=== PATIENT | female | born 1965 | race American Indian/Alaskan Native ===

== ENCOUNTER 2016-10-09 20:17 | Emergency (ER) | payer OTHER ==
[2016-10-10] MEDS ORDERED: MOTRIN PO ONE (00:28)
--- NOTE | 2016-10-10 00:32 | Emergency Department Report ---
ED Headache HPI - General Chief Complaint: Headache Stated Complaint: HEADACHE/RT EYE/EAR PAIN/DIZZY Time Seen by Provider: 10/10/16 00:27 - History of Present Illness Timing/Duration: waxing and waning Quality: moderate Head Injury Location: frontal Recent Head Trauma: no recent headache/trauma Associated Symptoms: nasal congestion, nasal drainage Allergies/Adverse Reactions: Allergies No Known Allergies Allergy (Unverified 04/05/13 03:25) Home Medications: Ambulatory Orders Amlodipine Besylate/Benazepril [Lotrel 5-10 mg] 1 each PO QDAY 04/05/13 Bimatoprost [Lumigan 0.01%] 1 drop OP QPM 04/05/13 Sulfamethoxazole/Trimethoprim [Bactrim DS TAB] 1 each PO BID #14 tablet Triamcinolone Acetonide [Nasacort SPRAY] 10.8 ml NS QDAY #1 spray 10/10/16 hydrOXYzine HCL [Atarax] 25 mg PO Q6HR PRN #60 tablet 10/10/16 ED Review of Systems ROS: Stated complaint: HEADACHE/RT EYE/EAR PAIN/DIZZY Other details as noted in HPI ED Past Medical Hx - Past Medical History Previous Medical History?: Yes Hx Hypertension: Yes Additional medical history: GLAUCOMA - Surgical History Past Surgical History?: Yes Additional Surgical History: ABLATION - Social History Smoking Status: Never Smoker Substance Use Type: None - Medications Home Medications: Home Medications Medication Instructions Recorded Confirmed Last Taken Type Amlodipine Besylate/Benazepril 1 each PO QDAY 04/05/13 04/05/13 04/04/13 08:00 History [Lotrel 5-10 mg] Bimatoprost [Lumigan 0.01%] 1 drop OP QPM 04/05/13 04/05/13 04/04/13 08:00 History Sulfamethoxazole/Trimethoprim 1 each PO BID #14 tablet 10/10/16 Unknown Rx [Bactrim DS TAB] Triamcinolone Acetonide [Nasacort 10.8 ml NS QDAY #1 spray 10/10/16 Unknown Rx SPRAY] hydrOXYzine HCL [Atarax] 25 mg PO Q6HR PRN #60 tablet 10/10/16 Unknown Rx ED Physical Exam - General Limitations: No Limitations General appearance: alert, in no apparent distress - Head Head exam: Present: atraumatic, normocephalic - Eye Eye exam: Present: normal appearance, PERRL, EOMI - ENT ENT exam: Present: normal exam, mucous membranes moist - Expanded ENT Exam Expanded TM/Canal exam: Loss of Landmarks: Right TM, Left TM Throat exam: Positive: normal inspection, other (maxillary tenderness) - Neck Neck exam: Present: normal inspection, full ROM. Absent: lymphadenopathy - Respiratory Respiratory exam: Present: normal lung sounds bilaterally - Cardiovascular Cardiovascular Exam: Present: regular rate, normal rhythm, normal heart sounds - GI/Abdominal GI/Abdominal exam: Present: soft, normal bowel sounds - Extremities Exam Extremities exam: Present: normal inspection - Neurological Exam Neurological exam: Present: alert, oriented X3 - Psychiatric Psychiatric exam: Present: normal affect, normal mood - Skin Skin exam: Present: warm, dry, intact, normal color. Absent: rash ED Course Vital Signs 10/09/16 10/09/16 20:42 20:45 Temperature 98.6 F 98.6 F Pulse Rate 100 H 100 H Respiratory 20 20 Rate Blood Pressure 159/112 Blood Pressure 159/112 [Right] O2 Sat by Pulse 100 100 Oximetry Critical care attestation.: If time is entered above; I have spent that time in minutes in the direct care of this critically ill patient, excluding procedure time. ED Disposition Clinical Impression: Sinus infection Qualifiers: Sinusitis location: maxillary Chronicity: acute Disposition: DISCHARGED TO HOME OR SELFCARE Is pt being admited?: No Does the pt Need Aspirin: No Condition: Stable Instructions: Sinusitis (ED) Additional Instructions: Take antibiotics as prescribed. Please see his to Nasacort and Atarax as needed. If the Atarax makes her too sleepy you can obtain Zyrtec or Claritin [id number]. Prescriptions: hydrOXYzine HCL [Atarax] 25 mg PO Q6HR PRN #60 tablet PRN Reason: Itching Sulfamethoxazole/Trimethoprim [Bactrim DS TAB] 1 each PO BID #14 tablet Triamcinolone Acetonide [Nasacort SPRAY] 10.8 ml NS QDAY #1 spray Referrals: PRIMARY CARE, [Primary Care Provider] - 3-5 Days Forms: Work/School Release Form(ED)
[2016-10-10 01:44] VITALS: BP 134/88
== END 2016-10-10 01:30 | disposition home or self-care (01) ==
LOC: ED 20:17
DX: J01.00 Acute maxillary sinusitis, unspecified (principal); I10 Essential (primary) hypertension
CPT/HCPCS: 99282